=== PATIENT | male | born 1955 | race Caucasian/White ===

== ENCOUNTER 2021-10-14 17:50 | Inpatient (IN) ==
[2021-10-14] MEDS ORDERED: ONDANSETRON 4 MG ODT TABLET SL ONE (18:20)
[2021-10-14 18:33] LABS: POC Blood Urea Nitrogen 20 mg/dL (6-20); POC CO2 13 mmol/L (22-30); POC Calcium, Ionized 1.16 mmEq/L (1.16-1.32); POC Chloride 102 mEq/L (96-108); POC Glucose, Random 215 mg/dL (70-105); POC Hematocrit 56 % (41-55); POC Potassium 5.1 mEql/L (3.3-5.1); POC Sodium 131 mEq/L (133-145)
[2021-10-14] MEDS ORDERED: LACTATED RINGERS 1,000 ML IV ONE (18:41)
--- NOTE | 2021-10-14 18:53 | Emergency Department Note ---
Nausea/Vomiting/Diarrhea [facility] General Chief complaint: Nausea/Vomiting/Diarrhea Stated complaint: nausea vomiting Time Seen by Provider: 10/14/21 18:09 Source: patient Mode of arrival: ambulatory History of Present Illness HPI Narrative: Narrative:66-year-old male history of insulin-dependent type 2 diabetes presents to the ED for nausea vomiting and concern for "ketoacidosis". He says he has been completely fasting for 3 days in an effort to lose away although he knows this is not a good way to do that. Does state he has been drinking water however. Today started having some nausea vomiting. No belly pain. No other complaints. But says this is just like several years ago when he was admitted at [facility] for "ketoacidosis" says he was admitted for about 24 hours and got fluids. He has no other complaints of any kind. Also says he has not been taking his insulin for the last 3 days because he says he knows that since he was not eating it would cause him to be hypoglycemic. Says his sugars have been around the 150 dave Related Data Home Medications Medication Instructions Recorded Confirmed insulin aspart U-100 100 unit/mL 50 unit SUBCUT TID ml 08/28/21 10/14/21 (3 mL) subcutaneous pen (Novolog Flexpen U-100 Insulin aspart) insulin glargine 100 unit/mL (3 35 unit SUBCUT QAM ml 08/28/21 10/14/21 mL) subcutaneous pen (Lantus Solostar U-100 Insulin) levothyroxine 175 mcg capsule 175 mcg PO QDAY 08/28/21 10/14/21 losartan 25 mg tablet 25 mg PO QDAY 08/28/21 10/14/21 metformin 1,000 mg tablet 1,000 mg PO BID 08/28/21 10/14/21 multivitamin (Daily Multi-Vitamin) 1 tab PO QAM 08/28/21 10/14/21 rosuvastatin 40 mg tablet 40 mg PO QDAY 08/28/21 10/14/21 Allergies Allergy/AdvReac Type Severity Reaction Status Date / Time No Known Drug Allergies Allergy Verified 08/28/21 15:14 Review of Systems ROS ROS Narrative: Narrative: At least 10 systems reviewed and otherwise acutely negative except as in the HPI PFSH Narrative Patient History Narrative: Narrative: Medical/Surgical/Family History All Active Problems (Updated 10/15/21 @ 04:03 by Charles Johnson DO) Secondary DM with DKA (Acute) Acute dehydration (Acute) Nausea & vomiting (Acute) Perianal abscess (Acute) Paronychia (Acute) Numbness (Acute) Medical History Perianal abscess Social History Smoking Status: Never smoker Exam Narrative Narrative: Narrative: Constitutional: normally developed, no acute distress . Head: Normocephalic, atraumatic, Eyes: No Icterus, ENT: Moist mucus membranes, Neck: Supple, Cardiac: Normal heart sounds, palpable radial pulses, Pulmonary: Normal respiratory effort. Breath sounds clear, no wheeze, rhonchi, rales, Gastrointestinal: Abdomen soft, non-distended, non-tender,Negative Pacheco's Musculoskeletal: No gross deformities, well perfused Skin: warm, dry Neuro: Alert and oriented. Course Vital Signs Vital signs: Vital Signs Temperature 36.3 C 10/14/21 17:52 Pulse Rate 108 H 10/14/21 17:52 Respiratory Rate 18 10/14/21 17:52 Blood Pressure 149/83 10/14/21 17:52 Pulse Oximetry (%) 97 10/14/21 17:52 Temperature 36.6 C 10/15/21 02:00 Pulse Rate 123 H 10/15/21 03:29 Respiratory Rate 32 H 10/15/21 03:29 Blood Pressure 147/71 10/15/21 02:04 Pulse Oximetry (%) 96 10/15/21 03:29 [facility] MDM Narrative Medical decision making narrative: Narrative: Patient fasting for 3 days not eating anything now some nausea vomiting concern for ketoacidosis he states. Although his sugars have been less than 200 he says. Work-up initiated given some IV fluids. Has a completely benign abdominal exam and no abdominal pain I do not believe emergent abdominal imaging indicated at this time. Vitals mild tachycardia 110, mild tachypnea [id number] Chem-8 shows a glucose of 215, does indeed show a bicarb of 13 and a calculated anion gap of 16. Normal potassium 5.1. Normal renal function, consideration for DKA however given his story of complete fasting as well as a sugar of only 215 this may be some starvation ketosis playing a role as well. Still awaiting some further diagnostic studies. Receiving IV bolus. Twelve-lead EKG sinus rhythm with quite a bit artifact, heart rate 102 QTC within normal, no obvious acute ischemia CBC appears hemoconcentrated white count 16, nonspecific, hemoglobin 16.6, platelets 404 1899: VBG does show metabolic acidosis pH 7.16 PCO2 26 bicarb 9.2 lactic acid 3.4 bilirubin LFTs normal, beta hydroxybutyrate 7.3, UA pending Reevaluation no new complaints, is receiving IV fluids feels a bit better Patient will require admission for correction of DKA versus component of starvation ketosis /metabolic acidosis. 2049: Spoke with hospitalist Dr. Handy, agrees to accept patient, he would like me to hold off on any insulin at this point until he can further review the patient and decide how he wants to proceed, with infusion versus other protocol etc. 2144: Repeat lactate downtrending 2.7 Critical Care Time Total CriticalCare time was 25 minutes, excluding separately reportable procedures. There was a high probability of clinically significant/life threatening deterioration in the patient's condition which required my urgent intervention. Lab Data Result diagrams: 10/14/21 18:26 10/14/21 18:26 Labs: Lab Results 10/14/21 10/14/21 10/14/21 Range/Units 18:26 18:26 18:26 WBC 16.0 H (4.5-11.0) K/mcL RBC 6.23 H (4.63-6.08) M/mcL Hgb 16.6 (13.7-17.5) g/dL Hct 52.1 H (40.1-51.0) % POC Hct 56 H (41-55) % MCV 83.6 (80.0-100.0) fL MCH 26.6 (26.0-34.0) pg MCHC 31.9 (31.0-36.0) g/dL RDW 15.8 H (11.5-14.5) % Plt Count 404 (140-440) K/mcL MPV 9.8 (7.4-10.4) fL Neut % (Auto) 85.2 H (38.0-78.0) % Lymph % (Auto) 8.7 L (15.5-49.0) % [place] % (Auto) 5.8 (1.0-12.0) % Eos % (Auto) 0 (0.0-7.0) % Baso % (Auto) 0.3 (0.0-2.0) % Lymph # (Auto) 1.39 L (1.50-4.80) K/mcL [place] # (Auto) 0.93 H (0.10-0.90) K/mcL Eos # (Auto) 0 (0.00-0.70) K/mcL Baso # (Auto) 0.04 (0.00-0.30) K/mcL Absolute Neutrophils 13.62 H (1.80-8.00) K/mcL VBG Lactic Acid (0.5-2.0) mmol/L POC Sodium 131 L (133-145) mEq/L Sodium POC Potassium 5.1 (3.3-5.1) mEql/L Potassium POC Chloride 102 (96-108) mEq/L Chloride Carbon Dioxide POC Total CO2 13 L (22-30) mmol/L Anion Gap POC BUN 20 (6-20) mg/dL BUN (8-23) mg/dL Creatinine (0.7-1.2) mg/dL POC Creatinine 1.0 (0.6-1.2) mg/dL GFR Calculation Glucose (70-105) mg/dL POC Glucose 215 H (70-105) mg/dL Osmolality (280-300) mOSM/kg Uric Acid (2.5-8.0) mg/dL Calcium (8.6-10.4) mg/dL POC WB Ioniz Calcium 1.16 (1.16-1.32) mmEq/L Phosphorus (2.5-4.5) mg/dL Magnesium (1.6-2.5) mg/dL Total Bilirubin 0.5 (0.1-1.0) mg/dL Direct Bilirubin < 0.2 (0-0.3) mg/dL GGT (8-61) U/L AST 17 (<40) U/L ALT 13 (<40) U/L Alkaline Phosphatase 91 (39-117) U/L Lactate Dehydrogenase (135-225) U/L Total Protein 8.7 H (5.9-8.4) gm/dL Albumin 4.6 (3.2-5.2) gm/dL Globulin 4.1 H (2.2-3.7) gm/dL Albumin/Globulin Ratio (1.0-2.3) Triglycerides (<150) mg/dL Lipase 15 (7-60) U/L Beta-Hydroxybutyrate (<0.27) mmol/L TSH (0.27-5.01) uIU/mL 10/14/21 10/14/21 10/14/21 Range/Units 18:26 18:26 18:26 WBC (4.5-11.0) K/mcL RBC (4.63-6.08) M/mcL Hgb (13.7-17.5) g/dL Hct (40.1-51.0) % POC Hct (41-55) % MCV (80.0-100.0) fL MCH (26.0-34.0) pg MCHC (31.0-36.0) g/dL RDW (11.5-14.5) % Plt Count (140-440) K/mcL MPV (7.4-10.4) fL Neut % (Auto) (38.0-78.0) % Lymph % (Auto) (15.5-49.0) % [place] % (Auto) (1.0-12.0) % Eos % (Auto) (0.0-7.0) % Baso % (Auto) (0.0-2.0) % Lymph # (Auto) (1.50-4.80) K/mcL [place] # (Auto) (0.10-0.90) K/mcL Eos # (Auto) (0.00-0.70) K/mcL Baso # (Auto) (0.00-0.30) K/mcL Absolute Neutrophils (1.80-8.00) K/mcL VBG Lactic Acid (0.5-2.0) mmol/L POC Sodium (133-145) mEq/L Sodium POC Potassium (3.3-5.1) mEql/L Potassium POC Chloride (96-108) mEq/L Chloride Carbon Dioxide POC Total CO2 (22-30) mmol/L Anion Gap POC BUN (6-20) mg/dL BUN (8-23) mg/dL Creatinine (0.7-1.2) mg/dL POC Creatinine (0.6-1.2) mg/dL GFR Calculation Glucose (70-105) mg/dL POC Glucose (70-105) mg/dL Osmolality 304 H (280-300) mOSM/kg Uric Acid 10.0 H (2.5-8.0) mg/dL Calcium (8.6-10.4) mg/dL POC WB Ioniz Calcium (1.16-1.32) mmEq/L Phosphorus (2.5-4.5) mg/dL Magnesium (1.6-2.5) mg/dL Total Bilirubin (0.1-1.0) mg/dL Direct Bilirubin (0-0.3) mg/dL GGT (8-61) U/L AST (<40) U/L ALT (<40) U/L Alkaline Phosphatase (39-117) U/L Lactate Dehydrogenase (135-225) U/L Total Protein (5.9-8.4) gm/dL Albumin (3.2-5.2) gm/dL Globulin (2.2-3.7) gm/dL Albumin/Globulin Ratio (1.0-2.3) Triglycerides (<150) mg/dL Lipase (7-60) U/L Beta-Hydroxybutyrate 7.34 H (<0.27) mmol/L TSH 0.27 (0.27-5.01) uIU/mL 10/14/21 10/14/21 Range/Units 18:26 21:45 WBC (4.5-11.0) K/mcL RBC (4.63-6.08) M/mcL Hgb (13.7-17.5) g/dL Hct (40.1-51.0) % POC Hct (41-55) % MCV (80.0-100.0) fL MCH (26.0-34.0) pg MCHC (31.0-36.0) g/dL RDW (11.5-14.5) % Plt Count (140-440) K/mcL MPV (7.4-10.4) fL Neut % (Auto) (38.0-78.0) % Lymph % (Auto) (15.5-49.0) % [place] % (Auto) (1.0-12.0) % Eos % (Auto) (0.0-7.0) % Baso % (Auto) (0.0-2.0) % Lymph # (Auto) (1.50-4.80) K/mcL [place] # (Auto) (0.10-0.90) K/mcL Eos # (Auto) (0.00-0.70) K/mcL Baso # (Auto) (0.00-0.30) K/mcL Absolute Neutrophils (1.80-8.00) K/mcL VBG Lactic Acid 2.7 H (0.5-2.0) mmol/L POC Sodium (133-145) mEq/L Sodium TNP POC Potassium (3.3-5.1) mEql/L Potassium TNP POC Chloride (96-108) mEq/L Chloride TNP Carbon Dioxide TNP POC Total CO2 (22-30) mmol/L Anion Gap TNP POC BUN (6-20) mg/dL BUN 18 (8-23) mg/dL Creatinine 1.1 (0.7-1.2) mg/dL POC Creatinine (0.6-1.2) mg/dL GFR Calculation 69 Glucose 237 H (70-105) mg/dL POC Glucose (70-105) mg/dL Osmolality (280-300) mOSM/kg Uric Acid 10.5 H (2.5-8.0) mg/dL Calcium 9.2 (8.6-10.4) mg/dL POC WB Ioniz Calcium (1.16-1.32) mmEq/L Phosphorus 4.7 H (2.5-4.5) mg/dL Magnesium 2.2 (1.6-2.5) mg/dL Total Bilirubin 0.5 (0.1-1.0) mg/dL Direct Bilirubin < 0.2 (0-0.3) mg/dL GGT 38 (8-61) U/L AST 14 (<40) U/L ALT 12 (<40) U/L Alkaline Phosphatase 86 (39-117) U/L Lactate Dehydrogenase 153 (135-225) U/L Total Protein 8.2 (5.9-8.4) gm/dL Albumin 4.3 (3.2-5.2) gm/dL Globulin 3.9 H (2.2-3.7) gm/dL Albumin/Globulin Ratio 1.1 (1.0-2.3) Triglycerides 108 (<150) mg/dL Lipase (7-60) U/L Beta-Hydroxybutyrate (<0.27) mmol/L TSH (0.27-5.01) uIU/mL ED POC Tests ED POC Tests: ERNESTINE - SARS Antigen Negative Discharge Plan Patient/Caregiver Discharge Instructions Pt seen by PARKING CONTROL OFFICER/PA only: No Clinical Impression: Secondary DM with DKA, Acute dehydration, Nausea & vomiting Patient Disposition: Xfer As Inpt ([facility]) Condition: Serious Discharge Date/Time: 10/14/21 21:58
[2021-10-14 19:08] LABS: Basophils # (Auto) 0.04 K/mcL (0.00-0.30); Basophils % (Auto) 0.3 % (0.0-2.0); Eosinophils # (Auto) 0 K/mcL (0.00-0.70); Eosinophils % (Auto) 0 % (0.0-7.0); Hematocrit 52.1 % (40.1-51.0); Hemoglobin 16.6 g/dL (13.7-17.5); Lymphocytes # (Auto) 1.39 K/mcL (1.50-4.80); Lymphocytes % (Auto) 8.7 % (15.5-49.0); Mean Cell Volume 83.6 fL (80.0-100.0); Mean Corpuscular HGB Conc 31.9 g/dL (31.0-36.0); Mean Platelet Volume 9.8 fL (7.4-10.4); Monocytes # (Auto) 0.93 K/mcL (0.10-0.90); Monocytes % (Auto) 5.8 % (1.0-12.0); Neutrophils % (Auto) 85.2 % (38.0-78.0); Platelet Count 404 K/mcL (140-440); RBC 6.23 M/mcL (4.63-6.08); Red Cell Distribution Width 15.8 % (11.5-14.5)
[2021-10-14 19:27] LABS: ALT/SGPT 13 U/L (<40); AST/SGOT 17 U/L (<40); Albumin 4.6 gm/dL (3.2-5.2); Alkaline Phosphatase 91 U/L (39-117); Bilirubin,Direct < 0.2 mg/dL (0-0.3); Bilirubin,Total 0.5 mg/dL (0.1-1.0); Globulin 4.1 gm/dL (2.2-3.7)
--- NOTE | 2021-10-14 21:05 | Internal Med History&Physical ---
HPI History of Present Illness Patient information: Note initiated : 10/14/21 at 9:01 pm Service Date, if different from initiated Date: [] Patient: Tin Kim a 66 y/o M admitted on for nausea vomiting. Chief Complaint: [] History of present illness: Mr. Kim is a 66 year old M Presents to the ED with nausea and vomiting. Patient is a diabetic insulin- dependent and has been fasting for 3 days to lose weight also has not been t aking his insulin because he is not eating otherwise his blood glucose been around 150. Patient states he was fine yesterday but restart whelping nausea vomiting. Denies abdominal pain. Dates he had a similar episode 4 years ago where he is able to fast for 6 days but ended up in the hospital with this as DKA. Says that the last time he tried fasting to lose weight. In the ED is found to have ketoacidosis with a pH of 7.16. Glucose 215 mild hyponatremia and severe bicarb deficiency. Review of Systems: Pertinent positives as above. Denies headache/fever/chills/chest or abdominal pain/cough/dyspnea/diarrhea. Remaining 10 point review of system reviewed negative PFSH PFSH All Active Problems Perianal abscess (Acute) Paronychia (Acute) Numbness (Acute) Medical History Perianal abscess MEDS/ALLERGIES Home Medications and Allergies Home Medications Medication Instructions Recorded Confirmed Type cholecalciferol (vitamin D3) 25 25 mcg PO QDAY 08/28/21 08/28/21 History mcg (1,000 unit) capsule cyanocobalamin (vitamin B-12) 5,000 mcg PO QDAY 08/28/21 08/28/21 History 5,000 mcg capsule insulin aspart U-100 100 unit/mL 50 unit SUBCUT TID ml 08/28/21 08/28/21 History (3 mL) subcutaneous pen (Novolog Flexpen U-100 Insulin aspart) insulin glargine 100 unit/mL (3 35 unit SUBCUT QAM ml 08/28/21 08/28/21 History mL) subcutaneous pen (Lantus Solostar U-100 Insulin) levothyroxine 175 mcg capsule 175 mcg PO QDAY 08/28/21 08/28/21 History losartan 25 mg tablet 25 mg PO QDAY 08/28/21 08/28/21 History metformin 1,000 mg tablet 1,000 mg PO BID 08/28/21 08/28/21 History multivitamin (Daily Multi-Vitamin) 1 tab PO QAM 08/28/21 08/28/21 History rosuvastatin 40 mg tablet 40 mg PO QDAY 08/28/21 08/28/21 History Allergies Allergy/AdvReac Type Severity Reaction Status Date / Time No Known Drug Allergies Allergy Verified 08/28/21 15:14 EXAM Constitutional Vitals: Temp Pulse Resp BP Pulse Ox 97.3 F 102 H 18 141/79 97 10/14/21 17:52 10/14/21 20:30 10/14/21 17:52 10/14/21 20:30 10/14/21 20:30 Exam: General: Alert, Awake, No acute Distress, obese Eyes/N/T: EOMI, PERRL, dry MM Head/Neck: neck supple, normocephalic atraumatic CV: RRR, No murmurs, normal s1/s2 Pulm: Clear b/l, no wheezing/rhonchi/rales Abd: soft, nontender, +BS x4 Ext: no clubbing/cyanosis/edema Neuro: Alert, no focal deficits, moves all extremities, CN 2-12 grossly intact, symmetrical strength b/l upper/lower, sensations intact b/l upper/lower Skin: warm/dry DATA Data Completed and Pending Labs: Labs from last 24 hours 10/14/21 10/14/21 10/14/21 18:26 18:26 18:26 WBC 16.0 H RBC 6.23 H Hgb 16.6 Hct 52.1 H POC Hct MCV 83.6 MCH 26.6 MCHC 31.9 RDW 15.8 H Plt Count 404 MPV 9.8 Neut % (Auto) 85.2 H Lymph % (Auto) 8.7 L [place] % (Auto) 5.8 Eos % (Auto) 0 Baso % (Auto) 0.3 Lymph # (Auto) 1.39 L [place] # (Auto) 0.93 H Eos # (Auto) 0 Baso # (Auto) 0.04 Absolute Neutrophils 13.62 H POC Sodium POC Potassium POC Chloride POC Total CO2 POC BUN POC Creatinine POC Glucose Osmolality Pending Uric Acid Pending POC WB Ioniz Calcium Total Bilirubin Direct Bilirubin AST ALT Alkaline Phosphatase Total Protein Albumin Globulin Lipase Beta-Hydroxybutyrate 7.34 H 10/14/21 10/14/21 18:26 18:26 WBC RBC Hgb Hct POC Hct 56 H MCV MCH MCHC RDW Plt Count MPV Neut % (Auto) Lymph % (Auto) [place] % (Auto) Eos % (Auto) Baso % (Auto) Lymph # (Auto) [place] # (Auto) Eos # (Auto) Baso # (Auto) Absolute Neutrophils POC Sodium 131 L POC Potassium 5.1 POC Chloride 102 POC Total CO2 13 L POC BUN 20 POC Creatinine 1.0 POC Glucose 215 H Osmolality Uric Acid POC WB Ioniz Calcium 1.16 Total Bilirubin 0.5 Direct Bilirubin < 0.2 AST 17 ALT 13 Alkaline Phosphatase 91 Total Protein 8.7 H Albumin 4.6 Globulin 4.1 H Lipase 15 Beta-Hydroxybutyrate A/P Narrative A/P Narrative: A: *DKA: could also be Starvation ketosis or component of, but the increased uric acid & osmolality trends towards DKA -ph 7.16 on admit *Nausea/Vomitin/2 above *Volume depletion/hemoconcentration: *DM insulin-dependent: *Hyponatremia, mild: *Hypothyroidism: tsh *Obesity: *HTN/HLD: P: -IVF -insulin gtt overnight -f/u acidosis and glucose and sodium - -cont home ARB -Home medication reconciliation -ppx: lovenox Time Spent With Patient Time: Total time spent is greater than 50% in coordination of care (as documented) at patient's floor/unit and/or counseling patient: Total time spent with greater than 50% in coordination of care (as documented) at patient's floor/unit and/or counseling patient:: Greater than 70 minutes
[2021-10-14] MEDS ORDERED: ONDANSETRON 4 MG/2 ML VIAL IV PRN (22:30)
[2021-10-14] MEDS ORDERED: LACTATED RINGERS 1,000 ML IV SCH (22:30)
[2021-10-14] MEDS ORDERED: PROMETHAZINE 25 MG/ML VIAL IV PRN (22:30)
[2021-10-14] MEDS ORDERED: INSULIN REGULAR, HUMAN 50 UNIT in 0.9 % SODIUM CHLORIDE 99.5 ML IV SCH (22:30)
[2021-10-14] MEDS ORDERED: POLYETHYLENE GLYCOL 3350 17 GM PACKET PO PRN (22:30)
[2021-10-14] MEDS ORDERED: POTASSIUM CHLORIDE 20 MEQ TABLET PO PRN ×2 (22:30)
[2021-10-14] MEDS ORDERED: POTASSIUM CHLORIDE 40 MEQ in DEXTROSE 5% IN WATER 500 ML IV PRN (22:30)
[2021-10-14] MEDS ORDERED: MAGNESIUM SULFATE 2 GM/50 ML BAG IV PRN (22:30)
[2021-10-14] MEDS ORDERED: METOCLOPRAMIDE 10 MG/2 ML VIAL IV PRN (22:30)
[2021-10-14] MEDS ORDERED: IPRATROPIUM/ALBUTEROL 3 ML AMPUL.NEB NEB PRN (22:30)
[2021-10-14] MEDS ORDERED: SENNOSIDES 1 TABLET PO PRN (22:30)
[2021-10-14] MEDS ORDERED: METOCLOPRAMIDE 10 MG/2 ML VIAL ONE (22:50)
[2021-10-14] MEDS ORDERED: INSULIN REGULAR, HUMAN 1 UNIT/0.01 ML UNIT ONE (23:01)
[2021-10-14 23:24] LABS: ABG Methemoglobin 0.5 % (0.4-1.5); Total Hemoglobin 16.5 gm/Dl (13.5-16.5); VBG Base Excess -18 (-2-3); VBG HCO3 9.2 mmol/L (24.0-28.0); VBG Oxygen Saturation 88.4 % (40.0-70.0); VBG PCO2 26.1 mmHg (41.0-51.0); VBG PH 7.16 U (7.32-7.42); VBG PO2 67.7 mmHg (25.0-40.0)
[2021-10-14 23:54] LABS: ALT/SGPT 12 U/L (<40); AST/SGOT 14 U/L (<40); Albumin 4.3 gm/dL (3.2-5.2); Albumin/Globulin Ratio 1.1 (1.0-2.3); Alkaline Phosphatase 86 U/L (39-117); Bilirubin,Direct < 0.2 mg/dL (0-0.3); Bilirubin,Total 0.5 mg/dL (0.1-1.0); Blood Urea Nitrogen 18 mg/dL (8-23); Calcium 9.2 mg/dL (8.6-10.4); Globulin 3.9 gm/dL (2.2-3.7); Glomerular Filtration Rate 69; Glucose 237 mg/dL (70-105); Lactate Dehydrogenase 153 U/L (135-225); Phosphorous 4.7 mg/dL (2.5-4.5); Triglycerides 108 mg/dL (<150); Uric Acid 10.5 mg/dL (2.5-8.0)
[2021-10-15] MEDS: 0.9 % SODIUM CHLORIDE 10 ML SYRINGE IV SCH ×4 (00:01→21:08)
[2021-10-15] MEDS: DEXTROSE 5%-LR 1,000 ML IV SCH ×4 (00:01→11:17)
[2021-10-15] MEDS ORDERED: PROMETHAZINE 25 MG/ML VIAL ONE (00:29)
[2021-10-15] MEDS ORDERED: LABETALOL 5 MG/ML ML IV PRN (01:14)
[2021-10-15] MEDS ORDERED: ACETAMINOPHEN 325 MG TABLET PO PRN (01:18)
[2021-10-15] MEDS ORDERED: MAG HYDROX/AL HYDROX/SIMETH 30 ML ORAL.SUSP PO PRN (01:22)
[2021-10-15 01:30] LABS: Appearance,Urine CLEAR (Clear); Bilirubin,Urine Negative (Negative); Color,Urine STRAW; Culture Indicated,Urine No; Glucose,Urine (UA) >=500 mg/dL (Negative); Ketones,Urine 80 mg/dL (Negative); Leukocyte Esterase,Urine Negative /uL (Negative); Mucus,Urine FEW /hpf; Nitrate,Urine Negative (Negative); Protein,Urine Negative (Negative); Specific Gravity,Urine 1.023 (1.000-1.035); Urine Blood 0.03 mg/dL (Negative); Urine RBC 0 /hpf (0-3); Urine Squamous Epithelial Cell 0 /hpf (0-4); Urine WBC 1 /hpf (0-4); Urobilinogen,Urine Negative
[2021-10-15] MEDS ORDERED: MAG HYDROX/AL HYDROX/SIMETH 30 ML ORAL.SUSP ONE (02:09)
[2021-10-15] MEDS ORDERED: INSULIN REGULAR, HUMAN 1 UNIT/0.01 ML UNIT ONE (03:19)
[2021-10-15] MEDS ORDERED: ONDANSETRON 4 MG ODT TABLET ONE (03:55)
[2021-10-15] MEDS ORDERED: ONDANSETRON 4 MG/2 ML VIAL ONE (03:56)
[2021-10-15] MEDS ORDERED: LABETALOL 5 MG/ML ML IV ONE (04:54)
[2021-10-15 06:42] LABS: Basophils # (Auto) 0.02 K/mcL (0.00-0.30); Basophils % (Auto) 0.1 % (0.0-2.0); Eosinophils # (Auto) 0 K/mcL (0.00-0.70); Eosinophils % (Auto) 0 % (0.0-7.0); Hematocrit 46.6 % (40.1-51.0); Hemoglobin 15.3 g/dL (13.7-17.5); Lymphocytes # (Auto) 1.03 K/mcL (1.50-4.80); Lymphocytes % (Auto) 6.3 % (15.5-49.0); Mean Cell Volume 81.6 fL (80.0-100.0); Mean Corpuscular HGB Conc 32.8 g/dL (31.0-36.0); Mean Platelet Volume 10.1 fL (7.4-10.4); Monocytes # (Auto) 1.25 K/mcL (0.10-0.90); Monocytes % (Auto) 7.7 % (1.0-12.0); Neutrophils % (Auto) 85.9 % (38.0-78.0); Platelet Count 407 K/mcL (140-440); RBC 5.71 M/mcL (4.63-6.08); Red Cell Distribution Width 15.3 % (11.5-14.5); WBC 16.2 K/mcL (4.5-11.0)
[2021-10-15 07:02] LABS: ALT/SGPT 10 U/L (<40); AST/SGOT 11 U/L (<40); Albumin 3.8 gm/dL (3.2-5.2); Alkaline Phosphatase 78 U/L (39-117); Bilirubin,Direct < 0.2 mg/dL (0-0.3); Bilirubin,Total 0.4 mg/dL (0.1-1.0); Blood Urea Nitrogen 18 mg/dL (8-23); Calcium 8.8 mg/dL (8.6-10.4); Carbon Dioxide 12 mmol/L (22-30); Chloride 99 mmol/L (96-108); Globulin 3.7 gm/dL (2.2-3.7); Glomerular Filtration Rate 69; Glucose 250 mg/dL (70-105); Lactate Dehydrogenase 189 U/L (135-225); Phosphorous 2.1 mg/dL (2.5-4.5); Triglycerides 93 mg/dL (<150); Uric Acid 11.1 mg/dL (2.5-8.0)
[2021-10-15 07:16] LABS: Beta Hydroxybutyrate 4.66 mmol/L (<0.27)
[2021-10-15] MEDS ORDERED: HYDROcodone/APAP 5/325MG TABLET PO PRN (07:58)
--- NOTE | 2021-10-15 08:00 | Internal Med Progress Note ---
SUBJECTIVE Subjective Patient information: Note initiated : 10/15/21 at 7:57 am Service Date, if different from initiated Date: [] Patient: Tin Kim a 66 y/o M admitted on 10/14/21 for nausea vomiting. Chief Complaint: [] Interval history: Chief Complaint: [] History of present illness: Mr. Kim is a 66 year old M Presents to the ED with nausea and vomiting. Patient is a diabetic insulin- dependent and has been fasting for 3 days to lose weight also has not been taking his insulin because he is not eating otherwise his blood glucose been around 150. Patient states he was fine yesterday but restart whelping nausea vomiting. Denies abdominal pain. Dates he had a similar episode 4 years ago where he is able to fast for 6 days but ended up in the hospital with this as DKA. Says that the last time he tried fasting to lose weight. In the ED is found to have ketoacidosis with a pH of 7.16. Glucose 215 mild hyponatremia and severe bicarb deficiency. 10/15 Feeling better today. Nausea improving some. Bicarb still low. Follow-up pH. Likely transition to subcutaneous insulin with close monitoring of sugars. Leukocytosis and tachycardia but no fevers. aggressive IV fluid. Abdominal pain from vomiting last night. Review of Systems: denies headache/fever/chills/chest pain/cough/dyspnea/diarrhea. Otherwise see above. Constitutional Vitals: Vital Signs Temp Pulse Resp BP Pulse Ox 98.6 F 103 H 22 139/83 95 10/15/21 06:00 10/15/21 05:11 10/15/21 05:11 10/15/21 05:11 10/15/21 05:11 Period Temp Pulse Resp BP Sys/Escobar Pulse Ox Last 24 Hr 97.3 F-98.6 F 97-125 15-32 125-189/65-88 92-100 Intake and Output 10/14/21 10/15/21 10/15/21 21:59 05:59 13:59 Intake Total 1000 1381 315 Output Total 1549 600 Balance 1000 -168 -285 Weight 101.151 kg Intake & Output: Intake & Output 10/14/21 10/15/21 10/15/21 21:59 05:59 13:59 Intake Total 1000 1381 315 Output Total 1549 600 Balance 1000 -168 -285 Weight 101.151 kg Intake: IV 1000 881 15 Dextrose 5%-Lactated Ringers 1, 840 000 ml @ 175 mls/hr IV .[id number] [facility] Rx#:[id number] HumuLIN R 50 UNIT In Sodium 41 15 Chloride 0.9% 99.5 ml @ 5 UNIT/ HR 10 mls/hr IV DUR [facility] Rx#: [id number] Lactated Ringers 1,000 ml @ 1000 Wide Open IV BOLUS ONE Rx#: [id number] Oral 500 300 Output: Void Amount 1149 600 Emesis 400 Other: Urine Appearance Clear Clear Clear Urine Color Pale Pale Bright Yellow Urine Odor Normal Normal Normal Stool Size Large Stool Color Brown Stool Consistency Soft Formed # Voids 1 # Bowel Movements 1 Exam: General: Alert, Awake, No acute Distress, obese Eyes/N/T: EOMI, Head/Neck: neck supple, CV: RRR, No murmurs, Pulm: Clear b/l, no wheezing/rhonchi/rales Abd: soft, nontender, +BS x4 Ext: no clubbing/cyanosis/edema Neuro: Alert, no focal deficits, moves all extremities, Skin: warm/dry OBJ DATA Labs CBC & Chem 7: 10/15/21 05:27 10/15/21 05:28 Labs: Abnormal Lab Results 10/15/21 10/15/21 10/15/21 05:28 05:27 05:27 WBC 16.2 H RBC Hct POC Hct RDW 15.3 H Neut % (Auto) 85.9 H Lymph % (Auto) 6.3 L Lymph # (Auto) 1.03 L [place] # (Auto) 1.25 H Absolute Neutrophils 13.94 H VBG pH VBG pCO2 VBG pO2 VBG HCO3 VBG Total CO2 VBG O2 Saturation VBG Base Excess VBG Lactic Acid Carboxyhemoglobin POC Sodium Carbon Dioxide 13 L 12 L POC Total CO2 Anion Gap 22.0 H 23.0 H Glucose 250 H POC Glucose Osmolality Uric Acid 11.1 H Phosphorus 2.1 L Total Protein Globulin Beta-Hydroxybutyrate 4.66 H Urine Glucose (UA) Urine Ketones Urine Mucus 10/14/21 10/14/21 10/14/21 23:02 22:30 21:45 WBC RBC Hct POC Hct RDW Neut % (Auto) Lymph % (Auto) Lymph # (Auto) [place] # (Auto) Absolute Neutrophils VBG pH 7.16 L* VBG pCO2 26.1 L VBG pO2 67.7 H VBG HCO3 9.2 L* VBG Total CO2 10.0 L* VBG O2 Saturation 88.4 H VBG Base Excess -18 L VBG Lactic Acid 2.7 H Carboxyhemoglobin 2.9 H POC Sodium Carbon Dioxide POC Total CO2 Anion Gap Glucose POC Glucose Osmolality Uric Acid Phosphorus Total Protein Globulin Beta-Hydroxybutyrate Urine Glucose (UA) >=500 A Urine Ketones 80 A Urine Mucus Few A 10/14/21 10/14/21 10/14/21 18:26 18:26 18:26 WBC RBC Hct POC Hct RDW Neut % (Auto) Lymph % (Auto) Lymph # (Auto) [place] # (Auto) Absolute Neutrophils VBG pH VBG pCO2 VBG pO2 VBG HCO3 VBG Total CO2 VBG O2 Saturation VBG Base Excess VBG Lactic Acid Carboxyhemoglobin POC Sodium Carbon Dioxide POC Total CO2 Anion Gap Glucose 237 H POC Glucose Osmolality 304 H Uric Acid 10.5 H 10.0 H Phosphorus 4.7 H Total Protein Globulin 3.9 H Beta-Hydroxybutyrate 7.34 H Urine Glucose (UA) Urine Ketones Urine Mucus 10/14/21 10/14/21 10/14/21 18:26 18:26 18:26 WBC 16.0 H RBC 6.23 H Hct 52.1 H POC Hct 56 H RDW 15.8 H Neut % (Auto) 85.2 H Lymph % (Auto) 8.7 L Lymph # (Auto) 1.39 L [place] # (Auto) 0.93 H Absolute Neutrophils 13.62 H VBG pH VBG pCO2 VBG pO2 VBG HCO3 VBG Total CO2 VBG O2 Saturation VBG Base Excess VBG Lactic Acid Carboxyhemoglobin POC Sodium 131 L Carbon Dioxide POC Total CO2 13 L Anion Gap Glucose POC Glucose 215 H Osmolality Uric Acid Phosphorus Total Protein 8.7 H Globulin 4.1 H Beta-Hydroxybutyrate Urine Glucose (UA) Urine Ketones Urine Mucus Meds: Medications Acetaminophen (Acetaminophen 325 Mg Tablet) 650 mg PO Q4-6HP PRN; Protocol PRN Reason: Per Pain Protocol Al Hydrox/Mg Hydrox/Simethicone (Mag Hydrox/Al Hydrox/Simeth 30 Ml Oral.Susp) 30 ml PO Q4-6HP PRN PRN Reason: Dyspepsia Last Admin: 10/15/21 02:05 Dose: 30 ml Documented by: Albuterol/Ipratropium (Ipratropium/Albuterol 3 Ml Ampul.Neb) 3 ml NEB Q4HP PRN PRN Reason: Shortness Of Breath Diagnostic Test (Pha) (Accu-Chek 1 Each Strip) 1 each FS Q1 PETER Last Admin: 10/15/21 07:02 Dose: 1 each Documented by: Enoxaparin Sodium (Enoxaparin 40 Mg/0.4 Ml Syringe) 40 mg SQ DAILY PETER Potassium Chloride 40 meq/ (Dextrose) 520 mls @ 130 mls/hr IV UD PRN PRN Reason: Potassium < 3 Magnesium Sulfate (Magnesium Sulfate) 2 gm in 50 mls @ 50 mls/hr IV UD PRN PRN Reason: Magnesium </= 1.6 Insulin Human Regular 50 unit/ (Sodium Chloride) 100 mls @ 10 mls/hr IV DUR PETER; Protocol Last Titration: 10/15/21 07:02 Dose: 7 unit/hr, 14 mls/hr Documented by: Dextrose/Lactated Ringer's (Dextrose 5%-Lactated Ringers) 1,000 mls @ 175 mls/hr IV .Q5H43M PETER Last Admin: 10/15/21 04:49 Dose: 175 mls/hr Documented by: Labetalol HCl (Labetalol 5 Mg/Ml Ml) 10 mg IV Q4 PRN PRN Reason: Blood pressure Last Admin: 10/15/21 04:49 Dose: 10 mg Documented by: Metoclopramide HCl (Metoclopramide 10 Mg/2 Ml Vial) 10 mg IV Q6HP PRN PRN Reason: Nausea And Vomiting Last Admin: 10/15/21 00:02 Dose: 10 mg Documented by: Ondansetron HCl (Ondansetron 4 Mg/2 Ml Vial) 4 mg IV Q4HP PRN PRN Reason: Nausea And Vomiting Last Admin: 10/15/21 04:56 Dose: 4 mg Documented by: Polyethylene Glycol (Polyethylene Glycol 3350 17 Gm Packet) 17 gm PO DAILYP PRN PRN Reason: Constipation Potassium Chloride (Potassium Chloride 20 Meq Tablet) 40 meq PO UD PRN PRN Reason: Potssium is 3-3.5 Potassium Chloride (Potassium Chloride 20 Meq Tablet) 40 meq PO UD PRN PRN Reason: Potassium < 3 Promethazine HCl (Promethazine 25 Mg/Ml Vial) 12.5 mg IV Q6HP PRN PRN Reason: Nausea And Vomiting Last Admin: 10/15/21 00:25 Dose: 12.5 mg Documented by: Senna (Sennosides 1 Tablet) 2 tab PO DAILYP PRN PRN Reason: Constipation Sodium Chloride (0.9 % Sodium Chloride 10 Ml Syringe) 10 ml IV Q8 PETER Last Admin: 10/15/21 05:55 Dose: 10 ml Documented by: ABG Interpretation ABG results: 10/14/21 23:02 ABG Methemoglobin 0.5 VBG pH 7.16 L* VBG pCO2 26.1 L VBG pO2 67.7 H VBG HCO3 9.2 L* VBG Total CO2 10.0 L* VBG O2 Saturation 88.4 H VBG Base Excess -18 L A/P Narrative A/P Narrative: A: *DKA: could also be Starvation ketosis or component of, but the increased uric acid & osmolality trends towards DKA -ph 7.16 on admit *Nausea/Vomitin/2 above, *Volume depletion/hemoconcentration: *DM insulin-dependent: *Hyponatremia, mild: resolved *Hypophosphatemia: Pleat *Hypothyroidism: tsh wnl *Obesity: *HTN/HLD: P: -IVF -insulin gtt to SQ -f/u acidosis and electrolytes -ambulation -cont home ARB -Home medication reconciliation -ppx: lovenox Time Spent With Patient Time: Total time spent is greater than 50% in coordination of care (as documented) at patient's floor/unit and/or counseling patient: Total time spent with greater than 50% in coordination of care (as documented) at patient's floor/unit and/or counseling patient:: 25 - 35 minutes QUALITY VTE Deep Vein Thrombosis/Pulmonary Embolism Present on Admission: No
[2021-10-15] MEDS ORDERED: PHOSPHORUS 250 MG TABLET PO ONE (08:03)
[2021-10-15] MEDS ORDERED: LACTATED RINGERS 1,000 ML IV ONE (08:06)
[2021-10-15] MEDS ORDERED: LACTATED RINGERS 1,000 ML IV SCH (08:15)
[2021-10-15] MEDS: SODIUM BICARBONATE 650 MG TABLET PO SCH ×3 (08:41→21:03)
[2021-10-15] MEDS: LEVOTHYROXINE 100 MCG TABLET PO SCH (08:41)
[2021-10-15] MEDS: LEVOTHYROXINE 75 MCG TABLET PO SCH (08:41)
[2021-10-15] MEDS: LOSARTAN 25 MG TABLET PO SCH (08:41)
[2021-10-15] MEDS: ATORVASTATIN 40 MG TABLET PO SCH (08:41)
[2021-10-15] MEDS: ENOXAPARIN 40 MG/0.4 ML SYRINGE SQ SCH (08:42)
[2021-10-15] MEDS: INSULIN GLARGINE, HUMAN 1 UNIT/0.01 ML SQ SCH (08:42)
[2021-10-15] MEDS ORDERED: DEXTROSE 31 GM ORAL.SUSP PO PRN (09:06)
[2021-10-15] MEDS ORDERED: DEXTROSE 50% 50 ML VIAL IV PRN (09:06)
[2021-10-15 10:37] LABS: Anisocytosis 1+ (None Seen); Band Neutrophils % 5 % (0-10); Lymphocytes % 3 % (15-49); Monocytes % (Manual) 6 % (1-12); Platelet Estimate NORMAL (Normal); RBC Morphology ABNORMAL (Normal); Reactive Lymphocytes 1 % (0-2); Segmented Neutrophils % 85 % (38-78)
--- NOTE | 2021-10-15 11:58 | EKG ---
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
--- NOTE | 2021-10-15 12:01 | Discharge Summary ---
Discharge Provider Provider Patient information: Note initiated : 10/15/21 at 11:59 am Service Date, if different from initiated Date: [] Patient: Tin Kim a 66 y/o M admitted on 10/14/21 for nausea vomiting. Chief Complaint: [] Date of admission: 10/14/21 21:58 Discharge date: 10/16/21 Primary care physician: Lizzy Delarosa Consults: 10/14/21 Consult to Physician [CONS] Stat Comment: Consulting Provider: Paco Handy Reason For Exam: Physician to Consult Discharge Meds Discharge Medications Home Medications insulin aspart U-100 100 unit/mL (3 mL) subcutaneous pen (Novolog Flexpen U-100 Insulin aspart) 50 unit SUBCUT TID ml 08/28/21 [History Confirmed 10/15/21 Last Taken Unknown] insulin glargine 100 unit/mL (3 mL) subcutaneous pen (Lantus Solostar U-100 Insulin) 35 unit SUBCUT QAM ml 08/28/21 [History Confirmed 10/15/21 Last Taken Unknown] levothyroxine 175 mcg capsule 175 mcg PO QDAY 08/28/21 [History Confirmed 10/15/21 Last Taken Unknown] losartan 25 mg tablet 25 mg PO QDAY 08/28/21 [History Confirmed 10/15/21 Last Taken Unknown] metformin 1,000 mg tablet 1,000 mg PO BID 08/28/21 [History Confirmed 10/15/21 Last Taken Unknown] multivitamin (Daily Multi-Vitamin) 1 tab PO QAM 08/28/21 [History Confirmed 10/15/21 Last Taken Unknown] rosuvastatin 40 mg tablet 40 mg PO QDAY 08/28/21 [History Confirmed 10/15/21 Last Taken Unknown] COURSE Hospital Course Hospital course: History of present illness: Mr. Kim is a 66 year old M Presents to the ED with nausea and vomiting. Patient is a diabetic insulin- dependent and has been fasting for 3 days to lose weight also has not been taking his insulin because he is not eating otherwise his blood glucose been around 150. Patient states he was fine yesterday but restart whelping nausea vomiting. Denies abdominal pain. Dates he had a similar episode 4 years ago where he is able to fast for 6 days but ended up in the hospital with this as DKA. Says that the last time he tried fasting to lose weight. In the ED is found to have ketoacidosis with a pH of 7.16. Glucose 215 mild hyponatremia and severe bicarb deficiency. 10/15 Feeling better today. Nausea improving some. Bicarb still low. Follow-up pH. Likely transition to subcutaneous insulin with close monitoring of sugars. Leukocytosis and tachycardia but no fevers. aggressive IV fluid. Abdominal pain from vomiting last night. 10/16 Doing well. Feeling much better. Stable for discharge. A: *DKA: could also be Starvation ketosis or component of, but the increased uric acid & osmolality trends towards DKA -ph 7.16 on admit *Nausea/Vomitin/2 above, *Volume depletion/hemoconcentration: *DM insulin-dependent: *Hyponatremia, mild: *Hypophosphatemia: t *Hypothyroidism: tsh wnl *Obesity: *HTN/HLD: P: -avoid excessive fasting Discharge diagnosis: DKA nausea vomiting volume depletion Secondary discharge diagnosis: Diabetes hyponatremia hypophosphatemia hypothyroidism obesity Time Spent with Patient Time attestation: Total time spent providing and/or coordinating discharge services: EXAM Constitutional Vitals: Temp Pulse Resp BP Pulse Ox 98.4 F 89 21 153/73 96 10/15/21 08:00 10/15/21 10:12 10/15/21 10:12 10/15/21 10:01 10/15/21 10:12 Discharge Data Data Completed and Pending Labs on day of discharge: Labs from last 24 hours 10/15/21 10/15/21 10/15/21 08:15 05:28 05:27 WBC RBC Hgb Hct POC Hct MCV MCH MCHC RDW Plt Count MPV Neut % (Auto) Lymph % (Auto) [place] % (Auto) Eos % (Auto) Baso % (Auto) Lymph # (Auto) [place] # (Auto) Eos # (Auto) Baso # (Auto) Seg Neutrophils % 85 H Band Neutrophils % 5 Lymphocytes % 3 L Monocytes % (Manual) 6 Absolute Neutrophils Reactive Lymphocytes 1 Platelet Estimate Normal RBC Morphology Abnormal A Anisocytosis 1+ A ABG Methemoglobin VBG pH 7.32 VBG pCO2 VBG pO2 VBG HCO3 VBG Total CO2 VBG O2 Saturation VBG Base Excess VBG Lactic Acid Carboxyhemoglobin Total Hemoglobin POC Sodium Sodium 133 POC Potassium Potassium 4.3 POC Chloride Chloride 98 Carbon Dioxide 13 L POC Total CO2 Anion Gap 22.0 H POC BUN BUN Creatinine POC Creatinine GFR Calculation Glucose POC Glucose Osmolality Uric Acid Calcium POC WB Ioniz Calcium Phosphorus Magnesium 2.3 Total Bilirubin Direct Bilirubin GGT AST ALT Alkaline Phosphatase Lactate Dehydrogenase Total Protein Albumin Globulin Albumin/Globulin Ratio Triglycerides Lipase Beta-Hydroxybutyrate TSH Urine Color Urine Appearance Urine pH Ur Specific [place] Urine Protein Urine Glucose (UA) Urine Ketones Urine Occult Blood Urine Nitrate Urine Bilirubin Urine Urobilinogen Ur Leukocyte Esterase Urine RBC Urine WBC Ur Squamous Epith Cells Urine Bacteria Urine Mucus Ur Culture Indicated? 10/15/21 10/15/21 10/14/21 05:27 05:27 23:02 WBC 16.2 H RBC 5.71 Hgb 15.3 Hct 46.6 POC Hct MCV 81.6 MCH 26.8 MCHC 32.8 RDW 15.3 H Plt Count 407 MPV 10.1 Neut % (Auto) 85.9 H Lymph % (Auto) 6.3 L [place] % (Auto) 7.7 Eos % (Auto) 0 Baso % (Auto) 0.1 Lymph # (Auto) 1.03 L [place] # (Auto) 1.25 H Eos # (Auto) 0 Baso # (Auto) 0.02 Seg Neutrophils % Band Neutrophils % Lymphocytes % Monocytes % (Manual) Absolute Neutrophils 13.94 H Reactive Lymphocytes Platelet Estimate RBC Morphology Anisocytosis ABG Methemoglobin 0.5 VBG pH 7.16 L* VBG pCO2 26.1 L VBG pO2 67.7 H VBG HCO3 9.2 L* VBG Total CO2 10.0 L* VBG O2 Saturation 88.4 H VBG Base Excess -18 L VBG Lactic Acid Carboxyhemoglobin 2.9 H Total Hemoglobin 16.5 POC Sodium Sodium 134 POC Potassium Potassium 4.4 POC Chloride Chloride 99 Carbon Dioxide 12 L POC Total CO2 Anion Gap 23.0 H POC BUN BUN 18 Creatinine 1.1 POC Creatinine GFR Calculation 69 Glucose 250 H POC Glucose Osmolality Uric Acid 11.1 H Calcium 8.8 POC WB Ioniz Calcium Phosphorus 2.1 L Magnesium 2.3 Total Bilirubin 0.4 Direct Bilirubin < 0.2 GGT 36 AST 11 ALT 10 Alkaline Phosphatase 78 Lactate Dehydrogenase 189 Total Protein 7.5 Albumin 3.8 Globulin 3.7 Albumin/Globulin Ratio 1.0 Triglycerides 93 Lipase Beta-Hydroxybutyrate 4.66 H TSH Urine Color Urine Appearance Urine pH Ur Specific [place] Urine Protein Urine Glucose (UA) Urine Ketones Urine Occult Blood Urine Nitrate Urine Bilirubin Urine Urobilinogen Ur Leukocyte Esterase Urine RBC Urine WBC Ur Squamous Epith Cells Urine Bacteria Urine Mucus Ur Culture Indicated? 10/14/21 10/14/21 10/14/21 22:30 21:45 18:26 WBC RBC Hgb Hct POC Hct MCV MCH MCHC RDW Plt Count MPV Neut % (Auto) Lymph % (Auto) [place] % (Auto) Eos % (Auto) Baso % (Auto) Lymph # (Auto) [place] # (Auto) Eos # (Auto) Baso # (Auto) Seg Neutrophils % Band Neutrophils % Lymphocytes % Monocytes % (Manual) Absolute Neutrophils Reactive Lymphocytes Platelet Estimate RBC Morphology Anisocytosis ABG Methemoglobin VBG pH VBG pCO2 VBG pO2 VBG HCO3 VBG Total CO2 VBG O2 Saturation VBG Base Excess VBG Lactic Acid 2.7 H Carboxyhemoglobin Total Hemoglobin POC Sodium Sodium TNP POC Potassium Potassium TNP POC Chloride Chloride TNP Carbon Dioxide TNP POC Total CO2 Anion Gap TNP POC BUN BUN 18 Creatinine 1.1 POC Creatinine GFR Calculation 69 Glucose 237 H POC Glucose Osmolality Uric Acid 10.5 H Calcium 9.2 POC WB Ioniz Calcium Phosphorus 4.7 H Magnesium 2.2 Total Bilirubin 0.5 Direct Bilirubin < 0.2 GGT 38 AST 14 ALT 12 Alkaline Phosphatase 86 Lactate Dehydrogenase 153 Total Protein 8.2 Albumin 4.3 Globulin 3.9 H Albumin/Globulin Ratio 1.1 Triglycerides 108 Lipase Beta-Hydroxybutyrate TSH Urine Color Straw Urine Appearance Clear Urine pH 5.0 Ur Specific [place] 1.023 Urine Protein Negative Urine Glucose (UA) >=500 A Urine Ketones 80 A Urine Occult Blood 0.03 Urine Nitrate Negative Urine Bilirubin Negative Urine Urobilinogen Negative Ur Leukocyte Esterase Negative Urine RBC 0 Urine WBC 1 Ur Squamous Epith Cells 0 Urine Bacteria None Urine Mucus Few A Ur Culture Indicated? No 10/14/21 10/14/21 10/14/21 18:26 18:26 18:26 WBC RBC Hgb Hct POC Hct MCV MCH MCHC RDW Plt Count MPV Neut % (Auto) Lymph % (Auto) [place] % (Auto) Eos % (Auto) Baso % (Auto) Lymph # (Auto) [place] # (Auto) Eos # (Auto) Baso # (Auto) Seg Neutrophils % Band Neutrophils % Lymphocytes % Monocytes % (Manual) Absolute Neutrophils Reactive Lymphocytes Platelet Estimate RBC Morphology Anisocytosis ABG Methemoglobin VBG pH VBG pCO2 VBG pO2 VBG HCO3 VBG Total CO2 VBG O2 Saturation VBG Base Excess VBG Lactic Acid Carboxyhemoglobin Total Hemoglobin POC Sodium Sodium POC Potassium Potassium POC Chloride Chloride Carbon Dioxide POC Total CO2 Anion Gap POC BUN BUN Creatinine POC Creatinine GFR Calculation Glucose POC Glucose Osmolality 304 H Uric Acid 10.0 H Calcium POC WB Ioniz Calcium Phosphorus Magnesium Total Bilirubin Direct Bilirubin GGT AST ALT Alkaline Phosphatase Lactate Dehydrogenase Total Protein Albumin Globulin Albumin/Globulin Ratio Triglycerides Lipase Beta-Hydroxybutyrate 7.34 H TSH 0.27 Urine Color Urine Appearance Urine pH Ur Specific [place] Urine Protein Urine Glucose (UA) Urine Ketones Urine Occult Blood Urine Nitrate Urine Bilirubin Urine Urobilinogen Ur Leukocyte Esterase Urine RBC Urine WBC Ur Squamous Epith Cells Urine Bacteria Urine Mucus Ur Culture Indicated? 10/14/21 10/14/21 10/14/21 18:26 18:26 18:26 WBC 16.0 H RBC 6.23 H Hgb 16.6 Hct 52.1 H POC Hct 56 H MCV 83.6 MCH 26.6 MCHC 31.9 RDW 15.8 H Plt Count 404 MPV 9.8 Neut % (Auto) 85.2 H Lymph % (Auto) 8.7 L [place] % (Auto) 5.8 Eos % (Auto) 0 Baso % (Auto) 0.3 Lymph # (Auto) 1.39 L [place] # (Auto) 0.93 H Eos # (Auto) 0 Baso # (Auto) 0.04 Seg Neutrophils % Band Neutrophils % Lymphocytes % Monocytes % (Manual) Absolute Neutrophils 13.62 H Reactive Lymphocytes Platelet Estimate RBC Morphology Anisocytosis ABG Methemoglobin VBG pH VBG pCO2 VBG pO2 VBG HCO3 VBG Total CO2 VBG O2 Saturation VBG Base Excess VBG Lactic Acid Carboxyhemoglobin Total Hemoglobin POC Sodium 131 L Sodium POC Potassium 5.1 Potassium POC Chloride 102 Chloride Carbon Dioxide POC Total CO2 13 L Anion Gap POC BUN 20 BUN Creatinine POC Creatinine 1.0 GFR Calculation Glucose POC Glucose 215 H Osmolality Uric Acid Calcium POC WB Ioniz Calcium 1.16 Phosphorus Magnesium Total Bilirubin 0.5 Direct Bilirubin < 0.2 GGT AST 17 ALT 13 Alkaline Phosphatase 91 Lactate Dehydrogenase Total Protein 8.7 H Albumin 4.6 Globulin 4.1 H Albumin/Globulin Ratio Triglycerides Lipase 15 Beta-Hydroxybutyrate TSH Urine Color Urine Appearance Urine pH Ur Specific [place] Urine Protein Urine Glucose (UA) Urine Ketones Urine Occult Blood Urine Nitrate Urine Bilirubin Urine Urobilinogen Ur Leukocyte Esterase Urine RBC Urine WBC Ur Squamous Epith Cells Urine Bacteria Urine Mucus Ur Culture Indicated? Discharge Plan Patient/Caregiver Discharge Instructions Activity: increase activity as tolerated Diet: Consistent Carbohydrate Instructions: Diabetic Ketoacidosis (GEN) Activity Restrictions/Additional Instructions: Increase activity as tolerated, continue a consistent carbohydrate diet. Follow up with your primary care physician as scheduled. This discharge packet is provided to you to help keep you informed about your care. We want to ensure you get everything you need when you go home. You will also be receiving a call from us in a few days to follow up with you and see how you are doing since your discharge. This gives us a chance to listen to any concerns you maybe experiencing since you were discharged or any additional needs you may have, as well as providing us feedback on your care experience. We strive to always provide excellent care and thank you for your feedback and for choosing [facility]. Prescriptions: Continued multivitamin [Daily Multi-Vitamin] Tablet 1 tab PO QAM 0RF levothyroxine 175 mcg capsule 175 mcg PO QDAY 0RF losartan 25 mg tablet 25 mg PO QDAY 0RF rosuvastatin 40 mg tablet 40 mg PO QDAY 0RF metformin 1,000 mg tablet 1,000 mg PO BID 0RF insulin aspart U-100 [Novolog Flexpen U-100 Insulin] 100 unit/mL (3 mL) insulin pen 50 unit subcut TID 0RF Lantus Solostar U-100 Insulin 100 unit/mL (3 mL) insulin pen 35 unit subcut QAM 0RF Follow Up Plan Follow up with: Lizzy Delarosa ARNP [Primary Care Provider] - 11/03/21 12:30 pm (This will be a telephone appointment. Please call if you need to be seen sooner.) Patient Disposition: Home, Self-Care Prognosis: Fair QUALITY VTE Deep Vein Thrombosis/Pulmonary Embolism Present on Admission: No
[2021-10-15] MEDS: INSULIN LISPRO 1 UNIT/0.01 ML UNIT SQ SCH ×5 (12:07→21:09)
[2021-10-16] MEDS: 0.9 % SODIUM CHLORIDE 10 ML SYRINGE IV SCH (05:35)
[2021-10-16 07:01] LABS: ALT/SGPT 8 U/L (<40); AST/SGOT 20 U/L (<40); Albumin 3.5 gm/dL (3.2-5.2); Alkaline Phosphatase 71 U/L (39-117); Bilirubin,Direct < 0.2 mg/dL (0-0.3); Bilirubin,Total 0.6 mg/dL (0.1-1.0); Blood Urea Nitrogen 14 mg/dL (8-23); Carbon Dioxide 17 mmol/L (22-30); Chloride 101 mmol/L (96-108); Globulin 3.4 gm/dL (2.2-3.7); Glomerular Filtration Rate 88; Glucose 183 mg/dL (70-105); Lactate Dehydrogenase 277 U/L (135-225); Phosphorous 2.2 mg/dL (2.5-4.5); Triglycerides 122 mg/dL (<150); Uric Acid 7.7 mg/dL (2.5-8.0)
[2021-10-16] MEDS ORDERED: SODIUM BICARBONATE 650 MG TABLET PO ONE (07:26)
[2021-10-16] MEDS ORDERED: PHOSPHORUS 250 MG TABLET PO ONE (07:27)
[2021-10-16] MEDS: ENOXAPARIN 40 MG/0.4 ML SYRINGE SQ SCH (07:40)
[2021-10-16] MEDS: LOSARTAN 25 MG TABLET PO SCH (07:40)
[2021-10-16] MEDS: ATORVASTATIN 40 MG TABLET PO SCH (07:40)
[2021-10-16] MEDS: LEVOTHYROXINE 75 MCG TABLET PO SCH (07:40)
[2021-10-16] MEDS: LEVOTHYROXINE 100 MCG TABLET PO SCH (07:41)
[2021-10-16] MEDS: INSULIN LISPRO 1 UNIT/0.01 ML UNIT SQ SCH ×4 (07:50→11:38)
[2021-10-16] MEDS: INSULIN GLARGINE, HUMAN 1 UNIT/0.01 ML SQ SCH (07:55)
--- NOTE | 2021-10-16 16:12 | EKG ---
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 Measurements Intervals [place] Rate: 83 P: 93 IA: 146 QRS: 84 QRSD: 88 T: QT: 400 QTc: 470 Interpretive Statements Sinus rhythm Atrial premature complex Borderline T abnormalities Electronically Signed On 10-16-2021 16:12:27 PDT by Jaxson Burnett D.O. /[id number]
== END 2021-10-16 12:25 | disposition home or self-care (01) | DRG 638 ==
LOC: ED 17:50 → ICU 21:58
PROVIDERS: ADMIT Internal Medicine; ATTEND Internal Medicine

== ENCOUNTER 2024-12-29 21:18 | Observation (INO) ==
[2024-12-29] MEDS ORDERED: IOPAMIDOL 100 ML BOTTLE IV ONE (21:19)
[2024-12-29 21:52] LABS: Basophils # (Auto) 0.03 K/mcL (0.00-0.30); Basophils % (Auto) 0.4 % (0.0-2.0); Eosinophils # (Auto) 0.22 K/mcL (0.00-0.70); Eosinophils % (Auto) 2.7 % (0.0-7.0); Hematocrit 43.6 % (40.1-51.0); Hemoglobin 14.1 g/dL (13.7-17.5); Lymphocytes % (Auto) 19.6 % (15.5-49.0); Mean Cell Volume 83.4 fL (80.0-100.0); Mean Corpuscular HGB Conc 32.3 g/dL (31.0-36.0); Mean Platelet Volume 9.6 fL (8.8-12.5); Monocytes # (Auto) 1.08 K/mcL (0.10-0.90); Monocytes % (Auto) 13.3 % (1.0-12.0); Neutrophils % (Auto) 63.8 % (38.0-78.0); Platelet Count 297 K/mcL (140-440); RBC 5.23 M/mcL (4.63-6.08); Red Cell Distribution Width 14.2 % (11.5-14.5); WBC 8.2 K/mcL (4.5-11.0)
[2024-12-29 22:09] LABS: Partial Thromboplastin Time 23.9 sec (20.0-37.0)
[2024-12-29 22:10] LABS: ALT/SGPT 17 U/L (<40); AST/SGOT 34 U/L (<40); Albumin 3.8 gm/dL (3.2-5.2); Albumin/Globulin Ratio 1.3 (1.0-2.3); Alkaline Phosphatase 64 U/L (39-117); Bilirubin,Total 0.3 mg/dL (0.1-1.0); Blood Urea Nitrogen 21 mg/dL (8-23); Calcium 9.1 mg/dL (8.6-10.4); Carbon Dioxide 24 mmol/L (22-30); Chloride 100 mmol/L (96-108); Globulin 2.9 gm/dL (2.2-3.7); Glomerular Filtration Rate 76; Glucose 203 mg/dL (70-105); INR 0.9 (0.9-1.1); Potassium 3.5 mmol/L (3.3-5.1); Prothrombin Time 13.2 sec (11.9-14.5); Sodium 136 mmol/L (133-145)
[2024-12-29 22:52] LABS: Appearance,Urine Clear (Clear); Bilirubin,Urine Negative (Negative); Color,Urine Yellow; Glucose,Urine (UA) >=1000 mg/dL (Negative); Ketones,Urine Negative (Negative); Leukocyte Esterase,Urine Negative /uL (Negative); Nitrate,Urine Negative (Negative); PH,Urine 5.5 (5.0-9.0); Protein,Urine Negative (Negative); Urine Blood Negative ery/mcL (Negative); Urine RBC 0 /hpf (0-3); Urine Squamous Epithelial Cell 2 /hpf (0-4); Urine WBC 0 /hpf (0-4); Urobilinogen,Urine Normal
[2024-12-29] MEDS: ASPIRIN 325 MG ENTERIC COATED TABLET PO ONE (23:41)
[2024-12-29] MEDS: ASPIRIN 81 MG TAB.CHEW CHEWED ONE (23:44)
[2024-12-29] MEDS: CLOPIDOGREL 300 MG TABLET PO ONE (23:44)
[2024-12-30 06:05] LABS: ALT/SGPT 16 U/L (<40); AST/SGOT 32 U/L (<40); Albumin 3.6 gm/dL (3.2-5.2); Albumin/Globulin Ratio 1.3 (1.0-2.3); Alkaline Phosphatase 61 U/L (39-117); Bilirubin,Direct < 0.2 mg/dL (0-0.3); Bilirubin,Total 0.2 mg/dL (0.1-1.0); Blood Urea Nitrogen 22 mg/dL (8-23); Carbon Dioxide 23 mmol/L (22-30); Chloride 101 mmol/L (96-108); Globulin 2.8 gm/dL (2.2-3.7); Glomerular Filtration Rate 76; Glucose 179 mg/dL (70-105); Lactate Dehydrogenase 141 U/L (135-225); Potassium 3.6 mmol/L (3.3-5.1); Sodium 137 mmol/L (133-145); Uric Acid 5.5 mg/dL (2.5-8.0)
[2024-12-30 07:16] LABS: HDL Cholesterol 30 mg/dL (>40); LDL Cholesterol,Calculated 41 mg/dL (<100); Non-HDL Cholesterol 75 mg/dL (<130); Triglycerides 172 mg/dL (<150)
[2024-12-30] MEDS ORDERED: IPRATROPIUM/ALBUTEROL 3 ML AMPUL.NEB NEB PRN (08:17)
[2024-12-30] MEDS ORDERED: POTASSIUM CHLORIDE 20 MEQ TABLET PO PRN ×2 (08:17)
[2024-12-30] MEDS ORDERED: MAGNESIUM SULFATE 2 GM/50 ML BAG IV PRN (08:17)
[2024-12-30] MEDS ORDERED: SENNOSIDES 1 TABLET PO PRN (08:17)
[2024-12-30] MEDS ORDERED: ONDANSETRON 4 MG/2 ML VIAL IV PRN (08:17)
[2024-12-30] MEDS ORDERED: ACETAMINOPHEN 325 MG TABLET PO PRN (08:17)
[2024-12-30] MEDS ORDERED: POTASSIUM CHLORIDE 40 MEQ in DEXTROSE 5% IN WATER 500 ML IV PRN (08:17)
[2024-12-30] MEDS ORDERED: METOCLOPRAMIDE 10 MG/2 ML VIAL IV PRN (08:17)
[2024-12-30] MEDS ORDERED: POLYETHYLENE GLYCOL 3350 17 GM PACKET PO PRN (08:17)
[2024-12-30] MEDS ORDERED: ATORVASTATIN 40 MG TABLET PO SCH (09:00)
[2024-12-30] MEDS ORDERED: LOSARTAN 25 MG TABLET PO SCH (09:00)
[2024-12-30] MEDS: LEVOTHYROXINE 75 MCG TABLET PO SCH (09:57)
[2024-12-30] MEDS: LEVOTHYROXINE 100 MCG TABLET PO SCH (09:57)
[2024-12-30] MEDS: CLOPIDOGREL 75 MG TABLET PO SCH (09:57)
[2024-12-30] MEDS: ASPIRIN 81 MG TAB.CHEW PO SCH (09:58)
[2024-12-30] MEDS: ATORVASTATIN 40 MG TABLET PO SCH (09:58)
[2024-12-30] MEDS: INSULIN GLARGINE, HUMAN 1 UNIT/0.01 ML SQ SCH (09:58)
[2024-12-30] MEDS: ENOXAPARIN 40 MG/0.4 ML SYRINGE SQ SCH (10:00)
[2024-12-30] MEDS: NON FORMULARY MEDICATION 1 DOSE MISCELL (Insulin Aspart U-100 [Novolog Flexpen U-100 Insul SUB-Q SCH (10:00)
[2024-12-30] MEDS: DOCUSATE SODIUM 100 MG CAPSULE PO SCH (10:02)
[2024-12-30] MEDS: 0.9 % SODIUM CHLORIDE 1,000 ML IV ONE (10:07)
[2024-12-30 10:21] LABS: Hemoglobin A1C 7.9 % Hgb (4.0-6.0)
[2024-12-30] MEDS: metFORMIN 500 MG TABLET PO SCH (11:01)
[2024-12-30] MEDS: INSULIN LISPRO 1 UNIT/0.01 ML UNIT SQ SCH (12:11)
[2024-12-31 12:25] VITALS: TEMP 97.1; O2SAT 96
== END 2024-12-31 12:18 | disposition home or self-care (01) ==
LOC: ED 21:18 → ICU 12-30 01:14 → INTOOBSV 12-30 01:14
PROVIDERS: ADMIT Internal Medicine; ATTEND Internal Medicine